=== PATIENT | female | born 1980 | race Caucasian/White ===

== ENCOUNTER 2017-09-12 10:06 | Day surgery (SDC) | payer OTHER ==
[~2017-09-12] VITALS: Ht 157.5 cm; Wt 61.2 kg
[~2017-09-12 10:06] MED LIST: ADVIL200 MG PO; ALLERGY RELIE15.8 ML BOTH NARES; GAS-X125 MG PO; NEXPLANON68 MG SC; SYNTHROID88 MCG PO
[2017-09-12 11:02] VITALS: BP 142/91
[2017-09-12] MEDS ORDERED: ENDOCET 5-3251 EACH PO (15:07)
[2017-09-12] MEDS ORDERED: IBUPROFEN800 MG PO (15:07)
[2017-09-12 17:20] VITALS: BP 128/76
[2017-09-12 18:50] VITALS: BP 138/80
== END 2017-09-12 18:45 | disposition home or self-care (01) ==
LOC: SDC 10:06
PROC: 0UT94ZZ Resection of Uterus, Percutaneous Endoscopic Approach (ICD-10-PCS; principal; 2017-09-12)
PROC: 04L Lower Arteries, Occlusion (ICD-10-PCS; principal; 2017-09-12)
PROC: 0UT74ZZ Resection of Bilateral Fallopian Tubes, Percutaneous Endoscopic Approach (ICD-10-PCS; principal; 2017-09-12)
PROC: 0TJB8ZZ Inspection of Bladder, Via Natural or Artificial Opening Endoscopic (ICD-10-PCS; principal; 2017-09-12)
DX: N80.9 Endometriosis, unspecified (principal); N94.6 Dysmenorrhea, unspecified; N92.0 Excessive and frequent menstruation with regular cycle; D25.9 Leiomyoma of uterus, unspecified; E03.9 Hypothyroidism, unspecified; Z88.5 Allergy status to narcotic agent
CPT/HCPCS: 88307; J0131; J0360; J0690; J1100; J1170; J1885; J2250; J2405; J2710; J2765; J3010; J7643; Q0175